=== PATIENT | female | born 1995 | race Caucasian/White ===

== ENCOUNTER 2023-12-28 11:19 | Outpatient (AMB) | payer BC, MEDICARE, MEDICAID, SELFPAY ==
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
== END 2023-12-28 16:17 | disposition home or self-care (01) ==
LOC: HO.HOP 11:19
PROVIDERS: Visit Provider Clinical Nurse Specialist Psychiatric/Mental Health
DX: F34.0 Cyclothymic disorder (principal); F43.12 Post-traumatic stress disorder, chronic; Z79.899 Other long term (current) drug therapy
CPT/HCPCS: 99214

== ENCOUNTER → 2023-12-28 11:19 | Outpatient (BNVA) | payer BC, MEDICARE, MEDICAID, SELFPAY | PROVIDERS: Visit Provider Clinical Nurse Specialist Psychiatric/Mental Health ==

== ENCOUNTER 2024-02-22 10:41 | Outpatient (AMB) | payer BC, MEDICARE, MEDICAID, SELFPAY ==
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
== END 2024-02-22 13:09 | disposition home or self-care (01) ==
LOC: HO.HOP 10:41
PROVIDERS: Visit Provider Clinical Nurse Specialist Psychiatric/Mental Health
DX: F43.12 Post-traumatic stress disorder, chronic (principal); F31.81 Bipolar II disorder; F90.9 Attention-deficit hyperactivity disorder, unspecified type; F41.0 Panic disorder [episodic paroxysmal anxiety]
CPT/HCPCS: 99214

== ENCOUNTER → 2024-02-22 10:41 | Outpatient (BNVA) | payer BC, MEDICARE, MEDICAID, SELFPAY | PROVIDERS: Visit Provider Clinical Nurse Specialist Psychiatric/Mental Health ==

== ENCOUNTER 2024-04-25 10:37 | Outpatient (AMB) | payer BC, MEDICARE, MEDICAID, SELFPAY ==
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
== END 2024-04-25 12:02 | disposition home or self-care (01) ==
LOC: HO.HOP 10:37
PROVIDERS: Visit Provider Clinical Nurse Specialist Psychiatric/Mental Health
DX: F41.0 Panic disorder [episodic paroxysmal anxiety] (principal); F90.0 Attention-deficit hyperactivity disorder, predominantly inattentive type; F43.12 Post-traumatic stress disorder, chronic; F31.81 Bipolar II disorder
CPT/HCPCS: 99215

== ENCOUNTER → 2024-04-25 10:37 | Outpatient (BNVA) | payer BC, MEDICARE, MEDICAID, SELFPAY | PROVIDERS: Visit Provider Clinical Nurse Specialist Psychiatric/Mental Health ==

== ENCOUNTER 2024-05-23 12:00 | Outpatient (AMB) | payer BC, MEDICARE, MEDICAID, SELFPAY ==
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
== END 2024-05-23 17:36 | disposition home or self-care (01) ==
LOC: HO.HOP 12:01
PROVIDERS: Visit Provider Clinical Nurse Specialist Psychiatric/Mental Health
DX: F41.0 Panic disorder [episodic paroxysmal anxiety] (principal); F90.0 Attention-deficit hyperactivity disorder, predominantly inattentive type; F31.81 Bipolar II disorder; F43.12 Post-traumatic stress disorder, chronic
CPT/HCPCS: 99214

== ENCOUNTER → 2024-05-23 12:00 | Outpatient (BNVA) | payer BC, MEDICARE, MEDICAID, SELFPAY | PROVIDERS: Visit Provider Clinical Nurse Specialist Psychiatric/Mental Health ==

== ENCOUNTER 2025-01-01 10:41 | Outpatient (AMB) | payer BC, MEDICARE, MEDICAID, SELFPAY ==
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
== END 2025-01-01 10:43 | disposition home or self-care (01) ==
LOC: HO.HOP 10:41
PROVIDERS: Visit Provider Clinical Nurse Specialist Psychiatric/Mental Health
DX: F41.0 Panic disorder [episodic paroxysmal anxiety] (principal); F90.0 Attention-deficit hyperactivity disorder, predominantly inattentive type; F31.81 Bipolar II disorder; F43.12 Post-traumatic stress disorder, chronic
CPT/HCPCS: 99214

== ENCOUNTER 2025-05-25 09:35 | Outpatient (AMB) | payer BC, MEDICARE, MEDICAID, SELFPAY ==
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
--- OUTSIDE RECORDS SUMMARY | 2025-05-25 10:04 | XMS_ITS | Clinical Summary ---
Author Organization Patient Business Ser [facility] Address [address] [place] [address] Care Team Providers Care Project Management Intern Name Role Phone Yasir Campbell MD Primary Care Pr ovider Allergies Active Allergy Reactions Criticality Noted Date Comments Sulfa (Sulfonamide Antibiotics) 09/14 Sulfa Drugs Medications amphetamine-dext roamphetamine (ADDERALL) 10 mg tablet Take 1 Tab by mouth 2 times daily. Active buPROPion XL (WELLBUTRIN XL) 150 mg 24 hr tablet Take 1 Tab by mouth every morning. Active fluticasone propionate (FLONASE) 50 mcg/actuation nasal spray 2 Sprays by Nasal route daily. Active nicotine (NICODERM CQ) 21 mg/[address] 1 Patch onto the skin every 24 hours. Active valACYclovir (VALTREX) 500 mg tablet Take 1 Tab by mouth 2 times daily. Active Active Problems Problem Noted Date Diagnosed Date Alcohol abuse 09/30/2024 Anxiety and depression 09/30/2024 Bipolar 1 disorder ([facility] V24, [facility] V28) Chronic hand pain, right 09/30/2024 Hepatitis C 09/30/2024 Hidradenitis 09/30/2024 IV drug abuse ([facility] V24, [facility] V28) 024 Marijuana use 09/30/2024 Recurrent UTI 09/30/2024 Substance abuse ([facility] V24, [facility] V28) 09/30 Immunizations Name Administration Dates Next Due DTP 06/16/1998, 6,03/01/1995,1993,1993 HPV 9-valent (Gardisil) 9yo to less than 46yo 05/16/2011,07/21/2010,05/13/2010 Hepatitis B (Lhspeef-F-Eiznr , Recombivax HB-Adult) 19yo and older 05/11/2016 Hepatitis B Pediatric (Enger ix B; Recombivax HB) to less than 20 yo 03/29/1994,1993,1993 HiB 10/02/1994, 4,1993,1992 IPV Inactivated polio (Ipol) 6wks and older 06/16/1998,03/01/1995,1993,1992 MMR, measles mumps and rubel la Live (Priorix; M-M-R II) 12mo and older 06/16/1998,01/05/1994 Meningococcal, Unspecified 02/11/2008 Moderna SARS-CoV-2 COVID-19, mRNA, LNP-S, preservative free 01/09/2021,12/12/2020 Td, Unspecified 01/05/2017,07/18/2004 Tdap Tetanus diptheria acell ular pertussis (Boostrix; Adacel) 7yo and older 05/16/2011 Surgical History Surgery Date Site/Laterality Comments SECTION PROCEDURE: HISTORICAL DELIVERY OTHER SURGICAL HISTORY PROCEDURE: CA INDUCED DILATION AND CURETTAGE; COMMENT: x2 Medical History Medical History Date Comments Recurrent UTI DX:Recurrent UTI Pyelonephritis DX:Pyelonephriti s Substance abuse ([facility] V24 , [facility] V28) DX:Substance abuse (HCC) IV drug abuse ([facility] V24, [facility] V28) DX:IV drug abuse ([facility]) Alcohol abuse DX:Alcohol abuse Marijuana use DX:Marijuana use Tobacco abuse DX:Tobacco abuse Bipolar 1 disorder ([facility] V24, [facility] V28) DX:Bipolar 1 disorder ([facility]); COMMENT: Sees Delfina Carranza out of [facility] Anxiety and depression DX:Anxiet y and depression Aspirin overdose, intentiona l self-harm, initial encounter ([facility] V24, [facility] V28) DX:Aspirin overdose, intenti onal self-harm, initial encounter (HCC) Hepatitis C DX:Hepatitis C; COMMENT: treated 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 Liver disease DX:Liver disease ; COMMENT: from acute exacerbation of hep C Chronic 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 pain, right 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, 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 Family History Medical History Relation Name Comments Breast cancer Aunt paternal Mental illness Brother No Known Problems Father Heart attack Maternal Grandfather older Celiac disease Mother Breast cancer Paternal Grandmother Relation Name Status Comments Aunt paternal Alive Brother Alive Father Alive Maternal Grandfather Mother Alive Paternal Grandmother Social History Tobacco Use Types Packs/Day Years Used Date Smoking Tobacco: Every Day Smokeless Tobacco: Never Alcohol Use Standard Drinks/Week Comments No 0 (1 standard drink = 0.6 oz pur e alcohol) Comments Unknown Sex and Gender Information Value Date Recorded Sex Assigned at Not on file Legal Sex Female 4:25 PM EDT Gender Identity Not on file Sexual Orientation Not on file Obstetrics History Plan of Treatment Health Maintenance Due Date Last Done Comments Hepatitis A Vaccines (1 of 2 - Risk 2-dose series) 2012 Pneumococcal Vaccine: Pediatrics (0 to 5 Years) and At-Risk Patients (6 to 49 Years) (1 of 2 - PCV) 2012 Cervical Cancer Screening: Pap Smear 2014 HIV Screening 09/20/2020 Hepatitis C Screening 09/20/2020 Social Influencers of Health Screening 09/20/2020 COVID-19 Vaccine ( season) 2024 01/09/2021, 12/12/2020 Depression Screening 10/15/2024 Influenza Vaccine (#1) 2025 DTaP,Tdap,and Td Vaccines (9 - Td or Tdap) 01/05/2027 01/05/2017, 05/16/2011, 07/18/2004, Additional history exists HIB Vaccines Completed 10/02/1994, 12/14, 1993, Additional history exists IPV Vaccines Completed 06/16/1998, 02/12, 1993, Additional history exists MMR Vaccines Completed 06/16/1998, 01/05/1994 Meningococcal ACWY Vaccine Aged Out 02/11/2008 N o longer eligible based on patient's age to complete this topic HPV Vaccines Completed 05/16/2011, 10/0 04/2010, 05/13/2010 Hepatitis B Vaccines Completed 05/11/2016, 03/29/1994, 1993, Additional history exists Meningococcal B Vaccine Aged Out No l onger eligible based on patient's age to complete this topic RSV Immunization Patients Under 20 months Aged Out No longer eligible based on patient's age to complete this topic Varicella Vaccines Aged Out No longer eligible based on patient's age to complete this topic Care Teams Project Management Intern Relationship Specialty Start Date End Date Yasir Campbell MD [address], [place] PCP - General Internal Medicine 05/08/22
--- OUTSIDE RECORDS SUMMARY | 2025-05-25 10:04 | XMS_ITS | Encounter Summary ---
Author Organization [facility] Address [address] [place] [id number] Phone Care Team Providers Care Waste Oil Pumper Name Role Phone Christina Shipley MD Primary Care Provider Encounter Details Date Type Department Care Team (Late st Contact Info) Description 07/21/2010 Nurse Only [address] [place] [address] Social History Tobacco Use Types Packs/Day Years Used Date Smoking Tobacco: Never Assessed Comments Unknown Sex and Gender Information Value Date Recorded Sex Assigned at Not on file Legal Sex Female 4:10 PM EST Gender Identity Not on file Sexual Orientation Not on file documented as of this encounter Last Filed Vital Signs Vital Sign Reading Time Taken Comments Blood Pressure - - Pulse - - Temperature 36.8 C (98.2 F) 07/21/2010 2:39 PM EDT Respiratory Rate - - Oxygen Saturation - - Inhaled Oxygen Concentration - - Weight - - Height - - Body Mass Index - - documented in this encounter Nursing Notes * UNKNOWN, HISTORICAL - 07/21/2010 2:37 PM EDT Nilda Barger. 1995 NURSE NOTE/VERBAL ORDERS Office/Outpatient Visit Visit Date: Jul 21, 2010 02:37 pm Provider: Sabra Miguel CMA (In Process Inspector: Martha Perez MD; Electrophysiology Tech: Sabra Miguel CMA) Location: [facility]. ECTIVE: CC: Patient enters alone She is here for immunization. HPI: Pt here for immunization. Pt also has cough x 1.5 wks, just getting over cold sx. No fever, nofatigue. Has seasonal allergies. Takes generic brand Claritin and Flonase. Discussed with Lisa Clark LPN. Pt ok to receive vaccine today. Allergies: Last Reviewed on 07/06/2010 5:42:47 PM by Sabra Miguel Sulfas: hives OBJECTIVE: Vitals: Current: 07/21/2010 2:39:17 PM T: 98.2 F (oral) ASSESSMENT: V20.2 WCC: Immunizations only ORDERS: Procedures Ordered: Human Papilloma virus (HPV) vaccine, types 6, 11, 16, 18 (quadrivalent), 3 dose schedule, for intram PLAN: WCC: Immunizations only IMMUNIZATIONS: Gardisil (HPV) was given at todays visit. Return in late 2010 weeks for next update. Patient tolerated injection(s) well. Left office in good condition. Orders: Human Papilloma virus (HPV) vaccine, types 6, 11, 16, 18 (quadrivalent), 3 dose schedule, for intram Patient Recommendations: For WCC: Immunizations only: Immunizations for Todays isit; ^ HPV (Given) CHARGE CAPTURE: Primary Diagnosis: V20.2 WCC: Immunizations only Orders: [id number] Human Papilloma virus (HPV) vaccine, types 6, 11, 16, 18 (quadrivalent), 3 dose schedule, forintram documented in this encounter Plan of Treatment Not on file documented as of this encounter Visit Diagnoses Not on filedocumented in this encounter Care Teams Waste Oil Pumper Relationship Specialty Start Date End Date Christina Shipley MD [address] [place] [address] [address] [place] [address] PCP - General 12/04/16 documented as of this encounter
== END 2025-05-25 10:01 | disposition home or self-care (01) ==
LOC: HO.HOP 09:35
PROVIDERS: Visit Provider Clinical Nurse Specialist Psychiatric/Mental Health
DX: F41.0 Panic disorder [episodic paroxysmal anxiety] (principal); F90.0 Attention-deficit hyperactivity disorder, predominantly inattentive type; F31.81 Bipolar II disorder; F43.12 Post-traumatic stress disorder, chronic
CPT/HCPCS: 99214

== ENCOUNTER 2025-09-14 16:24 | Outpatient (AMB) | payer BC, MEDICARE, MEDICAID, SELFPAY ==
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
--- OUTSIDE RECORDS SUMMARY | 2025-09-14 18:44 | XMS_ITS | Encounter Summary ---
Author Organization [facility] Address [address] [place] [id number] Phone Care Team Providers Care Radio Tester Name Role Phone Christina Shipley MD Primary Care Provider [phone] Encounter Details Date Type Department Care Team (Late st Contact Info) Description 07/21/2010 Nurse Only [address] [place] [address] Social History Tobacco Use Types Packs/Day Years [...] Jul 21, 2010 02:37 pm Provider: Sabra Migule CMA (Fur Cutting Machine Operator: Martha Perez MD; Buhr Dresser: Sabra Miguel CMA) Location: [facility]. ECTIVE: CC: Patient enters alone [...] Primary Diagnosis: V20.2 WCC: Immunizations only Orders: [id number] Human Papilloma virus (HPV) vaccine, types 6, 11, 16, 18 (quadrivalent), 3 dose schedule, forintram documented in this encounter Plan of Treatment Not on file documented as of this encounter Visit Diagnoses Not on filedocumented in this encounter Care Teams Radio Tester Relationship Specialty Start Date End Date Christina Shipley MD [address] [place] [address] [address] [place] [address] PCP - General 12/04/16 documented as of this encounter
--- OUTSIDE RECORDS SUMMARY | 2025-09-14 18:44 | XMS_ITS | Clinical Summary ---
Author Organization [facility] Address [address] [place] [phone] Phone Care Team Providers Care Ferris Wheel Attendant Name Role Phone Christina Shipley MD Primary Care Provider [phone] Immunizations Immunization Administration Dates Next Due DTP 06/16/1998, 6,03/01/1995,10/25,1993 HPV, Quadrivalent 05/16/2011,07/21/2010,05/13/20 10 Hep B, ped/adol 03/29/1994,1993,1993 Hib (HbOC) 10/02/1994, 4,1993,08/25 IPV 03/01/1995,1993,1993 MMR 06/16/1998,01/05/1994 Meningococcal Conj (Menactra) MCV4P 02/11/2008 OPV 06/16/1998 Td (adult) (MBL), 2 Lf tetan us toxoid, PF, adsorbed 07/18/2004 Tdap 05/16/2011 Social History Tobacco Use Types Packs/Day Years Used Date Smoking Tobacco: Every Day Comments:Current Everyday Sm oker Comments Unknown Sex and Gender Information Value Date Recorded Sex Assigned at Not on file Legal Sex Female 4:10 PM EST Gender Identity Not on file Sexual Orientation Not on file Last Filed Vital Signs Vital Sign Reading Time Taken Comments Blood Pressure 121/59 02/12/2013 2:22 PM EDT Pulse - - Temperature 36.6 C (97.9 F) 01/11/2012 2:39 PM EDT Respiratory Rate - - Oxygen Saturation - - Inhaled Oxygen Concentration - - Weight 73.1 kg (161 lb 4 oz) 02/12/2013 2:22 PM EDT Height 174 cm (5' 8.5 ) 02/12/2013 2:22 PM EDT Body Mass Index 24.16 02/12/2013 2:22 PM EDT Plan of Treatment Health Maintenance Due Date Last Done Comments Varicella Vaccines (1 of 2 - 13+ 2-dose series) 2006 DTaP,Tdap,and Td Vaccines (7 - Td or Tdap) 05/16/2021 05/16/2011, 07/18/2004, 06/16/1998, Additional history exists Influenza Vaccines (#1) 2025 COVID-19 Vaccine ( - season) 2025 Hepatitis B Vaccines Completed 03/29/1994, 1993, 1993 HIB Vaccines Completed 10/02/1994, 12/14, 1993, Additional history exists IPV Vaccines Completed 06/16/1998, 02/12, 1993, Additional history exists MMR Vaccines Completed 06/16/1998, 01/05/1994 Meningococcal Vaccine Aged Out 02/11/2008 No christal messi eligible based on patient's age to complete this topic HPV Vaccines Completed 05/16/2011, 04/2010, 05/13/2010 Hepatitis A Vaccines Aged Out No long er eligible based on patient's age to complete this topic Men B Vaccine Aged Out No longer elig ible based on patient's age to complete this topic Pneumococcal Vaccine Aged Out No long er eligible based on patient's age to complete this topic Care Teams Ferris Wheel Attendant Relationship Specialty Start Date End Date Christina Shipley MD [address] [place] [address] [address] [place] [address] PCP - General 12/04/16
--- OUTSIDE RECORDS SUMMARY | 2025-09-14 18:45 | XMS_ITS | Clinical Summary ---
Author Organization Patient Business Ser [facility] Address [address] [place] [address] Care Team Providers Care Wind Field Service Manager Name Role Phone Yasir Campbell MD Primary [...] Anxiety and depression 09/30/2024 Bipolar 1 disorder ([facility] V24, [facility] V28) Chronic hand pain, right 09/30/2024 Hepatitis C 09/30/2024 Hidradenitis 09/30/2024 IV drug abuse ([facility] V24, [facility] V28) 024 Marijuana use 09/30/2024 Recurrent UTI 09/30/2024 Substance abuse ([facility] V24, [facility] V28) 09/30 Immunizations Immunization Administration Dates Next Due DTP 06/16/1998, 6,03/01/1995,1993,1993 HPV 9-valent (Gardisil) 9yo to less than 46yo 05/16/2011,07/21/2010,05/13/2010 Hepatitis B (Pxiegsb-I-Rbvwd , Recombivax HB-Adult) 19yo and older 05/11/2016 [...] PROCEDURE: HISTORICAL DELIVERY OTHER SURGICAL HISTORY PROCEDURE: ME INDUCED DILATION AND CURETTAGE; COMMENT: x2 Medical History Medical History Date Comments Recurrent UTI DX:Recurrent UTI Pyelonephritis DX:Pyelonephriti s Substance abuse ([facility] V24 , [facility] V28) DX:Substance abuse (HCC) IV drug abuse ([facility] V24, [facility] V28) DX:IV drug abuse ([facility]) Alcohol abuse DX:Alcohol abuse Marijuana use DX:Marijuana use Tobacco abuse DX:Tobacco abuse Bipolar 1 disorder ([facility] V24, [facility] V28) DX:Bipolar 1 disorder ([facility]); COMMENT: Sees Delfina Carranza out of [place] Anxiety and depression DX:Anxiet y and depression Aspirin overdose, intentiona l self-harm, initial encounter ([facility] V24, [facility] V28) DX:Aspirin overdose, intenti onal self-harm, initial encounter (HCC) Hepatitis C DX:Hepatitis C; COMMENT: treated 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 Liver disease DX:Liver disease ; COMMENT: from acute exacerbation of hep C Chronic hand pain, right DX: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 Settlement Processor 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, right Family History Medical [...] 09/20/2020 Social Influencers of Health Screening 09/20/2020 Depression Screening 10/15/2024 COVID-19 Vaccine ( season) 2025 01/09/2021, 12/12/2020 Influenza Vaccine (#1) 2025 DTaP,Tdap,and Td Vaccines (9 - Td or Tdap) 01/05/2027 01/05/2017, 05/16/2011, 07/18/2004, Additional history exists RSV Immunization Adult Patients (1 - 1-dose 75+ series) 2068 HIB Vaccines Completed 10/02/1994, 12/14, 1993, Additional history exists IPV Vaccines Completed 06/16/1998, 02/12, 1993, Additional history exists MMR Vaccines Completed 06/16/1998, 01/05/1994 Meningococcal ACWY Vaccine Aged Out 02/11/2008 N o longer eligible based on patient's age to complete this topic HPV Vaccines Completed 05/16/2011, 04/2010, 05/13/2010 Hepatitis B Vaccines Completed 05/11/2016, [...] age to complete this topic Care Teams Wind Field Service Manager Relationship Specialty Start Date End Date Yasir Campbell MD [address] [facility] [place] PCP - General Internal Medicine 05/08/22
== END 2025-09-14 16:25 | disposition home or self-care (01) ==
LOC: HO.HOP 16:24
PROVIDERS: Visit Provider Clinical Nurse Specialist Psychiatric/Mental Health
DX: F31.81 Bipolar II disorder (principal); F43.12 Post-traumatic stress disorder, chronic; F90.0 Attention-deficit hyperactivity disorder, predominantly inattentive type; F41.0 Panic disorder [episodic paroxysmal anxiety]
CPT/HCPCS: 99213